=== PATIENT | male | born 1980 | race Caucasian/White ===

== ENCOUNTER 2018-11-09 17:53 | Emergency (ER) | payer SELFPAY ==
[~2018-11-09] VITALS: Ht 167.6 cm; Wt 65.9 kg
[2018-11-09] MEDS ORDERED: METF-960 PO (18:26)
[2018-11-09] MEDS ORDERED: ATOR10TA84 PO (18:26)
[2018-11-09] MEDS ORDERED: ACETAMINOPHEN 500 MG TABLET PO ONE (19:30)
[2018-11-09 20:15] VITALS: BP 134/77
== END 2018-11-09 20:32 | disposition home or self-care (01) ==
LOC: EMS 17:54
DX: E11.40 Type 2 diabetes mellitus with diabetic neuropathy, unspecified (principal); E78.00 Pure hypercholesterolemia, unspecified; Z79.84 Long term (current) use of oral hypoglycemic drugs; Z88.0 Allergy status to penicillin
CPT/HCPCS: 82948